=== PATIENT | male | born 1960 | race Two or more races ===

== ENCOUNTER 2020-10-14 06:45 | Day surgery (SDC) | payer OTHER ==
[~2020-10-14 06:45] MED LIST: ATORVASTATIN CA40 MG PO; BACLO PO; COZAAR100 MG PO; GABAPENTIN800 M1 PO; NAPR500T14 PO; PERCOCET PO
== END 2020-10-14 19:00 | disposition home or self-care (01) ==
LOC: CIR.AMB 06:45
PROVIDERS: ATTEND Orthopaedic Surgery Hand Surgery
DX: M77.12 Lateral epicondylitis, left elbow (principal); M25.842 Other specified joint disorders, left hand; Z20.822 Contact with and (suspected) exposure to COVID-19

== ENCOUNTER 2022-09-14 04:50 | Day surgery (SDC) | payer OTHER ==
[~2022-09-14 04:50] MED LIST changes: +RESTORIL30 M1 PO
== END 2022-09-14 17:10 | disposition home or self-care (01) ==
LOC: CIR.AMB 04:50
PROVIDERS: ATTEND Orthopaedic Surgery Hand Surgery
DX: M65.331 Trigger finger, right middle finger (principal); Z20.822 Contact with and (suspected) exposure to COVID-19; I10 Essential (primary) hypertension; Z87.891 Personal history of nicotine dependence